=== PATIENT | female | born 1995 | race Caucasian/White ===

== ENCOUNTER 2020-02-22 07:45 | Outpatient (CLI) | payer OTHER, SELFPAY ==
--- NOTE | ~2020-02-22 | XR_ITS ---
XR UGI w barium swallow DATE: 02/22/2020 08:32 INDICATION: Dysphagia. Gastroesophageal reflux. TECHNIQUE: Fluoroscopy, rapid sequence spot radiographs and overhead radiographs during oral ingestio n of barium. Spot and overhead radiographs of the esophagus, stomach and proximal duodenum. 1.4 minutes fluoroscopy time DAP: 9.21 128 images COMPARISON: 11/14/2018 air-contrast upper gastrointestinal series with small bowel follow-through FINDINGS: Normal deglutition and esophageal peristalsis. No stricture, mucosal fold thickening, erosi on, ulceration or intraluminal mass lesion of the esophagus, stomach or duodenum. No hiatal hernia. N o gastroesophageal reflux was observed during the examination. The proximal small bowel mucosal patte rn is normal. IMPRESSION: Negative Reviewed, dictated and finalized at [facility]. Reviewed, dictated and finalized at [facility]. IMPRESSION: Negative
== END 2020-02-22 07:46 | disposition home or self-care (01) ==
LOC: ANHIMG 07:52
PROVIDERS: PCP Internal Medicine; Visit Provider Internal Medicine
DX: R13.10 Dysphagia, unspecified (principal); K21.9 Gastro-esophageal reflux disease without esophagitis
CPT/HCPCS: 74240

== ENCOUNTER 2020-11-18 14:18 | Outpatient (CLI) | payer OTHER, SELFPAY | END 2020-11-18 14:19 | disposition home or self-care (01) | LOC: ANHCOVIDVC 14:18 | PROVIDERS: PCP Internal Medicine | DX: Z23 Encounter for immunization (principal) | CPT/HCPCS: 0001A; 91300 ==

== ENCOUNTER 2020-12-09 13:51 | Outpatient (CLI) | payer OTHER, SELFPAY | END 2020-12-09 13:52 | disposition home or self-care (01) | LOC: ANHCOVIDVC 13:51 | PROVIDERS: PCP Internal Medicine | DX: Z23 Encounter for immunization (principal) | CPT/HCPCS: 0002A; 91300 ==

== ENCOUNTER 2022-02-25 08:16 | Outpatient (CLI) | payer OTHER, SELFPAY ==
[2022-02-25 08:41] LABS: Basophils Percent Auto 0.5 % (0.2-1.2); Eosinophils Absolute Auto 0.2 K/mm3 (0-0.3); Eosinophils Percent Auto 3.7 % (0-4.4); Hematocrit 34.9 % (37.0-47.0); Hemoglobin 11.4 g/dL (12.0-15.0); Immature Granulocyte Absolute 0.01 K/mm3 (0.00-0.031); Immature Granulocyte Percent A 0.2 % (0-0.5); Lymphocytes Absolute Auto 2.49 K/mm3 (0.9-3.2); Lymphocytes Percent Auto 39.7 % (18.3-44.2); Mean Corpuscular HGB Conc 32.7 g/dl (32-36); Mean Corpuscular Hemoglobin 29.6 pg (26-34); Mean Corpuscular Volume 90.6 fl (80-100); Mean Platelet Volume 10.9 fl (7.4-10.4); Monocytes Absolute Auto 0.4 K/mm3 (0.1-0.6); Neutrophils Absolute Auto 3.1 K/mm3 (1.3-6.7); Neutrophils Percent Auto 48.9 % (45.5-73.1); Platelet Count Result 203 k/mm3 (150-375); Red Blood Count 3.85 M/mm3 (4.2-5.4); Red Cell Distribution Width 13.1 % (11.5-14.5); White Blood Count 6.3 K/mm3 (4.5-10.0)
[2022-02-25 09:34] LABS: Alanine Aminotransferase 19 U/L (6-35); Alkaline Phosphatase 51 U/L (38-126); Anion Gap 7 mmol/L (8-16); Aspartate Amino Transferase 26 U/L (14-36); Bilirubin,Total 0.3 mg/dL (0.2-1.3); Blood Urea Nitrogen 13 mg/dL (7-17); CRP < 0.5 mg/dL (<1.0); Calcium 8.7 mg/dL (8.4-10.2); Carbon Dioxide 25 mmol/L (22-30); Chloride 107 mmol/L (98-107); Estimated Glomerular Filt Rate > 60; Glucose 91 mg/dL (65-110); Lactate Dehydrogenase 273 U/L (313-618); Potassium 3.8 mmol/L (3.4-5.0); Sodium 139 mmol/L (137-145)
[2022-02-25 10:17] LABS: Erythrocyte Sedimentation Rate 15 mm/hr (0-20)
== END 2022-02-25 08:17 | disposition home or self-care (01) ==
LOC: ANHLAB 08:19
PROVIDERS: PCP Internal Medicine; Visit Provider Internal Medicine
DX: R61 Generalized hyperhidrosis (principal); R59.1 Generalized enlarged lymph nodes
CPT/HCPCS: 36415; 80053; 83615; 85025; 85652; 86140

== ENCOUNTER 2022-03-06 06:54 | Outpatient (CLI) | payer OTHER, SELFPAY ==
--- NOTE | ~2022-03-06 | CT_ITS ---
EXAMINATION: CT soft tiss nk chst ab pel w DATE: 03/06/2022 07:29 INDICATION: Lymphadenopathy. Night sweats. TECHNIQUE: Computed tomography (CT) of the neck, chest, abdomen, and pelvis was performed with 100 mL Omnipaque 300 intravenous contrast. Automated exposure control and iterative reconstruction techniqu e were employed. The dose-length product was 868.97 mGy-cm. COMPARISON: None FINDINGS: NECK CT: There is a 7 mm nodule in right thyroid lobe, likely not clinically significant. There are no patholo gically enlarged lymph nodes. The cervical carotid arteries are normal. The mastoid air cells are nor mal. The bones are unremarkable. CHEST CT: There is no pneumonia or pleural effusion. The heart size is normal. No pericardial effusion. There a re no pathologically enlarged lymph nodes. There is a benign bone island in T7 vertebral body. ABDOMEN/PELVIS CT: The liver, gallbladder, spleen, pancreas, adrenal glands, and kidneys are normal. There are no dilate d loops of bowel. The appendix is not visualized. There is physiologic fluid in the pelvis. There are no pathologically enlarged lymph nodes. There is mild lumbar spondylosis. IMPRESSION: 1. No lymphadenopathy. Reviewed, dictated and finalized at location [facility]. IMPRESSION: 1. No lymphadenopathy.
== END 2022-03-06 06:55 | disposition home or self-care (01) ==
PROVIDERS: PCP Internal Medicine; Visit Provider Internal Medicine
DX: R59.0 Localized enlarged lymph nodes (principal)
CPT/HCPCS: 70491; 71260; 74177; Q9967

== ENCOUNTER 2025-06-06 09:56 | Outpatient (CLI) | payer OTHER, SELFPAY ==
--- OUTSIDE RECORDS SUMMARY | 2025-06-06 11:11 | XMS_ITS | Encounter Summary ---
Author Organization [facility] Address [address] [place] [address] Care Team Providers Care District Associate Judge Name Role Phone Troy Gaston MD Unavailable [phone] Encounter Details Date Type Department Care Team (Late st Contact Info) Description 02/20/2020 Lab Requisition [facility] [address] [place] [address] Social History Tobacco Use Types Packs/Day Years Used Date Smoking Tobacco: Never Assessed Comments Unknown Sex and Gender Information Value Date Recorded Sex Assigned at Not on file Legal Sex Female 5:59 PM CDT Gender Identity Not on file Sexual Orientation Not on file documented as of this encounter Plan of Treatment Not on file documented as of this encounter Procedures Procedure Name Priority Date/Time Associated Diagnosis Comments SARS-COV-2 (COVID-19) IN HOUSE Routine 02/20/2020 1:35 PM CDT documented in this encounter Results * SARS-COV-2 (COVID-19) IN HOUSE (02/20/2020 1:35 PM CDT) COVID-19 PCR Not detected Not detected, Invalid 02/21/2020 2:46 PM CDT [facility] Microbiology SPECIMEN FROM NASOPHARYNGEAL STRUCTURE / Unknown Collection / Unknown 02/20/2020 1:35 PM CDT 02/20/2020 9:27 PM CDT Narrative [facility] - 02/21/2020 2:46 PM CDT This Real Time RT-PCR assay was developed and its performance characteristics determined by [facility]. This test has been authorized by the Food and Drug administration (FDA)under an Emergency Use Authorization (EUA). This test has been validated in accordance with the FDA's guidance document Policy for Diagnostic Testing in Laboratories Certified to perform High Complexity Testing under CLIA prior to Emergency Use Authorization for Coronavirus Disease-2019 during the Public Health Emergency issued on October 07, 2019. FDA independent review of this validation is pending. This test is only authorized for the duration of time the declaration that circumstances exist justifying the authorization of emergency use of in vitro diagnostic tests for detection of SARS-CoV-2 virus and/or diagnosis of COVID-19 infection under section 564(b)(1) of the Act, 21 U.S.C 360bbb-3 (b)(1), unless the authorization is terminated or revoked sooner. us LAB - MICROBIOLOGY ORDERABLES Fi nal Result [facility] [address] [place], [place] [address], [facility] [phone] documented in this encounter Visit Diagnoses Not on filedocumented in this encounter Additional Health Concerns Infection Onset Date Last Indicated Resolved Time COVID-19 Under Investigation 02/20/2020 02/20/2020 02/21/2020 2:46 PM CDT documented as of this encounter Care Teams District Associate Judge Relationship Specialty Start Date End Date Troy Gaston MD [address] [facility] [address] [place] [address] PCP - Attributed[facility] RAVINDRA 01/07/25 documented as of this encounter
--- OUTSIDE RECORDS SUMMARY | 2025-06-06 11:11 | XMS_ITS | Clinical Summary ---
Author Organization [facility] [employer] Address [address] [place] [address] Care Team Providers Care Email Deployment Specialist Name Role Phone Troy Gaston MD Unavailable [phone] Source Comments [facility] [employer],non-owned Affiliates and Associated Physician Practices is amultiple site organization consisting of ambulatory clinics and hospital sitesin [place], [place], [place] and [place]. This disclosure is being madepursuant to the Care Everywhere program and may not contain all information available regarding this patient. Last updated 18.[facility] [employer] Immunizations Immunization Administration Dates Next Due COVID PFIZER BIVALENT 12Y+ 30mcg/0.3ML INFLUENZA VACCINE, QUADR. (F LUZONE; FLULAVAL; FLUARIX; AFLURIA QUADRIVALENT; 6MO+), 0.5 ML (IIV4) 05/23/2022 Social History Tobacco Use Types Packs/Day Years Used Date Smoking Tobacco: Never Assessed Comments Unknown Sex and Gender Information Value Date Recorded Sex Assigned at Not on file Legal Sex Female 5:59 PM CDT Gender Identity Not on file Sexual Orientation Not on file Plan of Treatment Health Maintenance Due Date Last Done Comments HIV SCREENING 02/05/2012 HEPATITIS C SCREENING 01/31/2015 DTAP/TDAP/TD VACCINES (1 - Tdap) 02/05/2016 HEPATITIS B VACCINE (1 of 3 - 19+ 3-dose series) 02/05/2016 PAP SMEAR 2018 HPV VACCINE (1 - 3-dose SCDM series) 02/05/2024 DEPRESSION SCREENING 08/09/2024 COVID-19 VACCINE (2 - 2024-2 6 season) 2025 05/23/2022 INFLUENZA VACCINE (#1) 2025 05/23/2022 ZOSTER VACCINE (1 of 2) 2047 HIB VACCINE Aged Out No longer eligi ble based on patient's age to complete this topic MENINGOCOCCAL (Group B) VACC INE SHARED DECISION-MAKING Aged Out No longer eligibl e based on patient's age to complete this topic MENINGOCOCCAL GROUPS A/C/Y/W VACCINE Aged Out No longer eligible b ased on patient's age to complete this topic PNEUMOCOCCAL VACCINE Aged Out No long er eligible based on patient's age to complete this topic Insurance [facility] Care Teams Email Deployment Specialist Relationship Specialty Start Date End Date Troy Gaston MD [address] [facility] [address] [place] [address] PCP - Attributed[facility] RAVIN[facility]A 01/07/25
--- NOTE | 2025-06-20 14:00 | P.SLEEP_ITS ---
Sleep Study - Home Unattended Date of Study: 06/06/25 Ordering Provider: Troy Gaston MD Interpreting Provider: Jeni Ochoa, DO Home Sleep Study Type: Watch PAT Height: 1.7 m Weight: 63.503 kg Body Mass Index: 21.9 Neck Circumference (inches): 12.5 [place]: 14 Reason for Sleep Study Excessive daytime sleepiness Sleep History The patient is a 30-year-old female that had a sleep study ordered by primary critical access hospital physician for evaluation of sleep apnea. The patient admits to excessive daytime sleepiness, trouble falling asleep and trouble maintaining sleep. He denies snoring loudly. She denies having interruptions in breathing while asleep. She denies choking or gasping at night. She denies having trouble breathing on her back. She does have morning headaches. She does have a dry or sore mouth /throat in morning. She denies nocturnal heartburn. She denies nocturia. She does have difficulty returning to sleep if she wakes up throughout the night. She does use hypnotics or sedatives. She does feel anxious about sleep. She does feel tired or sleepy during the day. She does feel tired in the morning. She does have the urge to fall asleep during the day. She does feel drowsy while driving. She denies sleep paralysis, cataplexy and hypnagogic/ hypnopompic hallucinations. She does clench or grind her teeth. She does kick or jerk her legs excessively. She does have a restless feeling in her legs that causes an urge to move her legs. It gets worse with rest and better with activity. It is present predominantly in the evening and it does cause a disturbance in her sleep. She goes to bed at 9:00 p.m. on work days and at night on her days off. It takes her 1 hour to fall asleep on work days and 30 minutes on her days off. She gets 8 hours of sleep on work days and 10 hours on her days off. Her sleep is a little more restorative on her days off. She does take a planned naps that lasts 1-2 hours. The nap is not restorative. The patient denies dream enactment behavior. She denies sleep walking. The patient has 1-2 cups of caffeinated beverage per day. He denies tobacco use. She consumes 2 alcoholic beverages 1-2 nights per week. She exercises 1-2 nights per week. [facility] Past Medical History Medical History Encounter for routine adult health examination with abnormal findings BMI 22.0-22.9, adult Thyroid nodule Night sweats Vasovagal symptom Sinusitis Right upper quadrant abdominal pain Menorrhagia with regular cycle LUQ abdominal pain Low ferritin level Left-sided chest pain Hypersomnolence Dizziness Chronic fatigue Chronic cluster headache, not intractable Acne URI (upper respiratory infection) Lymphadenopathy Impacted cerumen of both ears Essential tremor Follow up Borderline abnormal TFTs Vitamin D deficiency Anxiety with depression BMI 21.0-21.9, adult Encounter for preventive health examination Dysphagia Gastroesophageal reflux disease BMI 20.0-20.9, adult Psychiatric diagnosis History of migraine headaches Anemia Abnormal heart rhythm Family History Family History Mother Family history of elevated blood lipids Father Depression Other Family history of mental disorder Hypertension Social History Social History Smoking status: Never smoker Second hand tobacco smoke exposure: No Alcohol intake: never Do You Feel Safe in your Home?: Yes Lack of Transportation: No Lack of Food: Never True Current Housing: I Have Housing Concerned About Future Housing: No Difficulty Paying Gas/Electric Bills: No Difficulty Paying for Meds: No Currently Unemployed: No Difficulty w/ Childcare or Family Care: No Occupation/Education: occupation Gender identity (if verbalized by the patient): Female Medications Home Medications ?Medication ?Instructions ?Recorded ?Confirmed ?Type cholecalciferol (vitamin D3) 50 50 mcg PO DAILY 05/10/25 History mcg (2,000 unit) capsule norethindrone 1 mg-ethinyl 1 tablet PO DAILY 07/23/22 05/10/25 History estradiol 35 mcg tablet (Nortrel) bupropion HCl 150 mg 24 hr tablet, 300 mg (2 x 150 mg) PO QAM #180 02/12/25 05/10/25 Rx extended release (Wellbutrin XL) tabs amoxicillin 500 mg capsule 500 mg PO Q8H 05/10/2510/03 History rizatriptan 10 mg disintegrating See Rx Instructions P O .COMPLEX 05/10/25 05/10/25 Rx tablet (Maxalt-CARPET SEWER) #30 tabs triamterene 37.5 1 cap PO DAILY #30 caps 10/0305/10/25 Rx mg-hydrochlorothiazide 25 mg capsule zolpidem 10 mg tablet 10 mg PO QHS PRN sleep study #1 05/10/25 05/10/25 Rx tablet ferrous sulfate 325 mg (65 mg 325 mg PO DAILY 05/23/25 History iron) tablet escitalopram oxalate 10 mg tablet See Rx Instructions .Route 06/11/25 Rx .COMPLEX #30 tabs Sleep Procedure The sleep study was completed using ClickberryT a technically adequate device with seven channels: peripheral arterial tone, actigraphy, body position, snore, respiratory movement, pulse oximetry, sleep staging, and heart rate. Prior to using the device, the patient received verbal and written instructions for its application and was provided with the help desk phone number for additional telephonic instruction with 24-hour availability of qualified personnel to answer questions. The study was scored using CMS guidelines. Sleep Architecture The total recording time is 8 hrs, 14 min. The total sleep time is 7 hrs, 20 min. Sleep latency is 21 minutes. REM latency is 93 minutes. The patient had 10 episodes of waking. Sleep architecture shows 20.1% deep sleep, 49.8% light sleep, and (as % Total Sleep Time) showed NREM (Light 49.8%; Deep 20.1%), and a 30.1% stage REM. The patient spent 44.9% of total sleep time in the supine position. Sleep efficiency was 89.07. Respiratory Analysis The overall AHI (pAHI 4%:) is 2.0. The overall AHI (pAHI 3%:) is 3.1. The central AHI is 0.7. The AHI was 2.4 in NREM and 4.5 in REM sleep. The AHI was 4.0 in Supine and 2.3 in Non-supine sleep. Percent of [place] respirations is 0.0. Oximetry Data The oxygen desaturation index (MONROE 4%:) is 0.4. The mean saturation is 95%, and the lowest saturation is 92%. Time spent with saturation < 88% is 0.0 minutes. Snoring Profile Snoring average intensity is 40 dB. The patient snored above 45 decibels for 7.1 minutes, 1.6% of sleep time. Cardiac Profile The average pulse rate is 76 beats per minutes. The lowest pulse rate is 55 bpm. The highest pulse rate reported is 121 bpm. Atrial fibrillation was not detected. Premature beats occur <0.1 per minute. Assessment and Plan Assessment and Plan (1) Excessive daytime sleepiness: Code(s): G47.19 - Other hypersomnia Status: Acute Assessment and Plan: The patient had an overall AHI of 2.0 with desaturation down to 92%. This is not consistent with sleep disordered breathing. Due to the severity of her symptoms, further evaluation is warranted. I recommend that the patient have a polysomnogram followed by an MSLT. The patient should not take a sleep aid for this study. Data The data obtained during this sleep study is adequate for interpretation. Certification This sleep study has been reviewed by a board certified sleep medicine physician.
[2025-06-20 14:04] VITALS: BMI 21.9
== END 2025-06-07 13:31 | disposition home or self-care (01) ==
PROVIDERS: PCP Internal Medicine; Visit Provider Internal Medicine
DX: G47.10 Hypersomnia, unspecified (principal); G47.19 Other hypersomnia
CPT/HCPCS: 95800